=== PATIENT | female | born 1980 | race Caucasian/White ===

== ENCOUNTER 2016-08-19 09:39 | Emergency (ER) | payer OTHER ==
[2016-08-19 09:48] VITALS: BP 115/78; PULSE 78; RESP 16; O2SAT 98
--- NOTE | 2016-08-19 09:57 | ED.REPORT ---
HPI-Extremity Problem Lower Date of Service August 19, 2016 ED Provider: Aden Dinh MD The patient is a 36 year old female who presents to the ED due to right pinky toe pain onset yesterday. She kicked a swinging door and her right pinky toe is now red and swollen. She is able to walk but has pain every time she puts pressure on the foot. She denies numbness, weakness, LOC, and tingling. Nursing Notes Stated Complaint: TOE PAIN Chief Complaint: Extremity Trauma Nursing Notes Reviewed: Yes Allergies: Coded Allergies: No Known Allergies (Unverified , 08/19/16) General Time Seen by MD: 09:57 Chief Complaint Toe injury right 5 Hx Obtained From: Patient Arrived By: Walk-in Onset Occurred: Yesterday Symptom Duration: Since onset Caused by: Accidental Location: : Toe right 5 Quality: Painful Severity: Current: Mild Recent Healthcare: No recent doctor visit, No recent hospitalization Similar Sx Previous: No Past Medical History Past Medical History None Past Surgical History Vestibulectomy Smoking History Never Smoker Social History Alcohol Use: Denies alcohol use Drug Use: Denies drug use 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 Physical Exam Initial Vital Signs Vital Signs (First) Date Time Temp Pulse Resp B/P Pulse Ox O2 Delivery O2 Flow Rate FiO2 08/19/16 09:48 37.4 78 16 115/78 98 Room Air Initial VS: Reviewed Head / Eyes: Atraumatic, Normocephalic, PERRL ENT: Mucous membranes moist, Conjunctiva normal Neck: Supple, Non-tender Respiratory: Breath sounds normal, Clear to auscultation, No respiratory distress Cardiovascular: Regular rate & rhythm, Heart sounds normal, Intact distal pulses Abdomen / GI: Soft, Non-tender, No guarding, No rebound, No distention Back: No CVA tenderness Upper Extremities: Vascular intact, Neuro intact, No swelling, No tenderness Skin: Warm, Dry Lower Extremity / Pelvis / MS: Full range of motion, Neurologic intact, Vascular intact Toe Exam : Toe Exam: Positive: Swelling present..., Tenderness present..., Toe name... (R fifth) General/Constitutional: Awake, Alert, Cooperative, Not toxic appearing Interpretation & Diagnostics X-Ray Interpretation Xray Interpretation: IMPRESSION: No visualized acute fracture or dislocation. However, if clinical concern and/or pain persist, short interval imaging followup in 7-10 days is recommended, as occult injury cannot be definitively excluded. Dictated by: Alexandra Condon M.D. on 08/19/2016 at 10:40 Approved by: Alexandra Condon M.D. on 08/19/2016 at 10:40 X-Ray Ordered: Foot right Interpretation / Wet Read by: Interpret - Radiologist Re-Eval/Medical Decision Med Decision/Clinical Course 36-year-old female with right fifth toe pain one day status post kicking a door segmentally. She has bruising right fifth toe. Neurovascularly intact. X-ray no fracture. Patient declined darryn taping and boot at this time. She is an employee here and may request boot at any time. Counseled Regarding: Diagnosis, Lab results, Need for follow-up, When/why to return to ED Discharge & Departure Impression: Primary Impression: Toe injury Encounter type: initial encounter Laterality: right Qualified Code: S99.921A - Unspecified injury of right foot, initial encounter Disposition: Home Discharge Condition All VS Reviewed: Yes Condition: Stable Additional Instructions: I'm so sorry you have injured your toe. Your x-ray does not show any fracture, so it will heal naturally on its own. You can "darryn-tape" your toe to keep it immobilized. Take Tylenol and Ibuprofen for pain. Chocolate helps too :) Follow up with your primary care physician as needed. Return to the Emergency Department for any new or worsening symptoms including increased swelling, redness, warmth, or pain. I hope you feel better soon! Referrals: Marilyn Curry MD (PCP) [employer] Attestation Portion of this note were transcribed by Elle Coles. I, Dr. Dinh, personally performed the history, physical exam, and medical decision-making: I reviewed and confirmed the accuracy for the information in the transcribed note. Signed by: mary Chatterjee, 08/19/16 1100 copies to: Marilyn Curry MD, Ben M MD August 19, 2016 09:57 Elle Coles August 19, 2016 10:06
--- NOTE | 2016-08-19 10:42 | DRSVH ---
PROCEDURE: X-RAY TOESS, TWO VIEWS INDICATIONS: R fifth toe TECHNIQUE: 3 views of the fifth toe(s) acquired. COMPARISON: None. FINDINGS: Bones: No fractures or dislocations. No suspicious bony lesions. Soft tissues: No suspicious soft tissue densities. IMPRESSION: No visualized acute fracture or dislocation. However, if clinical concern and/or pain pe rsist, short interval imaging followup in 7-10 days is recommended, as occult injury cannot be defini tively excluded. Dictated by: Alexandra Condon M.D. on 08/19/2016 at 10:40 Approved by: Alexandra Condon M.D. on 08/19/2016 at 10:40
== END 2016-08-19 11:02 | disposition home or self-care (01) ==
LOC: SED 09:39
DX: S93.504A Unspecified sprain of right lesser toe(s), initial encounter (principal); S99.921A Unspecified injury of right foot, initial encounter; W22.8XXA Striking against or struck by other objects, initial encounter; Y93.89 Activity, other specified; Y92.89 Other specified places as the place of occurrence of the external cause; Y99.8 Other external cause status